=== PATIENT | female | born 1980 | race Caucasian/White ===

== ENCOUNTER → 2023-05-05 | Outpatient (RCR) | payer OTHER | END | disposition home or self-care (01) | LOC: WSPT | DX: S06.0X0D Concussion without loss of consciousness, subsequent encounter (principal) ==

== ENCOUNTER → 2023-05-21 | Outpatient (CLI) | payer OTHER ==
[~2023-05-21] MED LIST: ADIPEX-P37.5 MG PO; ADVIL200 MG PO; ALBUTEROL0.83 MG/ML IH; AMBIEN 10MG10 MG PO; AMERGE 2.5MG T2.5 MG PO; AMOXICILLIN 8751 TAB PO; ANUSOL-HC SUPPO25 MG RC; CARAFATE 1GM1 G PO; CEFTIN 250250 MG/TAB PO; CEFTIN500 MG PO; CELEBREX 200MG200 MG PO; CELEXA; CELEXA 20MG20 MG/TAB PO; CELEXA40 MG; CEPHALEXIN500 M1 PO; COLACE 100100 MG/CAP PO; COUMADIN; COUMADIN 22.5 MG/TAB PO; COUMADIN 5MG5 MG/TAB PO; COUMADIN4 MG; COUMADIN4 MG PO; CRESTOR20 MG PO; DAZIDOX20 MG PO; DOXYCYCLINE 10100 MG PO; DOXYCYCLINE100 M3 PO; ELIQUIS 5MG PO; ESCITALOPRAM PO; EXCEDRIN1 TAB PO; FLAGYL500 MG PO; FOLIC ACID 11 MG/TA1 PO; FOLIC ACID PO; GABAPENTIN100 M1 PO; HCTZ 25MG TAB25 MG PO; HYDROCORTISONE30 GM RC; IMITREX100 MG PO; LEVAQUIN 750MG750 M1 PO; LEVOXYL0.1 MG PO; LEVSIN0.125 M1 PO; LEXAPRO20 MG PO; LOVENOX 100100 MG/ML SQ; LOVENOX120 MG/0.8 SC; MAG-OX 400400 MG/TAB PO; MAGNESIUM ELEME30 MG PO; MEDROL 4MG DOSPA4 MG PO; METROGINE; MOBIC15 MG PO; MOTRIN 600600 MG/TAB PO; MULTI VITAMINS1 TAB PO; NATURAL MAGNES200 MG PO; NORCO 325 MG-51 TAB PO; NURTEC ODT75 MG PO; NYSTATIN OR100 MU/ML PO; OXY IR5 MG PO; OXYCODONE HCL5 MG PO; OXYCONTIN 10MG10 MG PO; PERCOCET 325 MG1 TA2 PO; PERCOCET 325 MG1 TA3 PO; PHARMASSURE ZIN50 MG PO; PHENERGAN 25 TA25 MG PO; PHENERGAN25 MG RC; PRAVACHOL 40MG40 MG PO; PRAZOSIN PO; PREDNISONE20 MG PO; PRIL40 PO; PRILOSEC 20MG20 MG PO; PROMETHAZINE12.5 M5 PO; PROTONIX20 MG PO; PYRIDIUM 100MG100 MG PO; RELPAX 40MG TAB40 MG PO; ROXICODONE 55 MG/TAB PO; RT ALBUTER2.5 MG/0.5 IH; SYNTHROID0.05 MG/TA PO; SYNTHROID0.088 MG/T PO; SYNTHROID0.1 MG/TAB PO; SYNTHROID0.125 MG/T PO; TENORMIN 2525 MG/TAB PO; THE MEDICINE S200 M2 PO; TIROSINT150 MC1 PO; TOPAMAX 100MG100 M1 PO; TOPAMAX50 MG PO; TYLENOL 500MG500 MG PO; ULTRAM 50MG TAB50 MG PO; VALIUM 5MG T5 MG/TAB PO; VICODIN 5/5001 UDTAB PO; VITAMIN B-2 100MG PO; VITAMIN B225 MG PO; XANAX1 MG PO; ZITHROMAX Z PA250 MG PO; ZOFRAN 4MG T4 MG/TAB PO; ZOFRAN ODT4 MG PO; ZOFRAN ODT8 MG PO; ZOFRAN8 MG PO
== END ==
LOC: COL.RAD 08:06
DX: M51.16 Intervertebral disc disorders with radiculopathy, lumbar region (principal); M51.17 Intervertebral disc disorders with radiculopathy, lumbosacral region; M48.061 Spinal stenosis, lumbar region without neurogenic claudication; E04.1 Nontoxic single thyroid nodule

== ENCOUNTER → 2023-05-28 | Outpatient (CLI) | payer OTHER | LOC: COL.RAD 11:59 | DX: E04.1 Nontoxic single thyroid nodule (principal) ==

== ENCOUNTER → 2023-06-17 | Outpatient (CLI) | payer OTHER ==
[~2023-06-17] MED LIST changes: +Iohexol 300 - 100 ML VIAL IV ONE; +NS 100 ML IV SCH
== END ==
LOC: COL.RAD 14:34
DX: E04.1 Nontoxic single thyroid nodule (principal); R07.9 Chest pain, unspecified; R06.02 Shortness of breath; Z86.711 Personal history of pulmonary embolism
CPT/HCPCS: Q9967

== ENCOUNTER 2023-10-22 21:05 | Emergency (ER) | payer OTHER ==
[~2023-10-22] VITALS: Ht 165.1 cm; Wt 113.6 kg
[~2023-10-22 21:05] MED LIST changes: +BACTRIM DS 8001 TAB PO; -Iohexol 300 - 100 ML VIAL IV ONE; -NS 100 ML IV SCH
[2023-10-22 21:15] VITALS: TEMP 97.5
[2023-10-22] MEDS ORDERED: Ondansetron 4 MG/2 ML VIAL IV ONE (22:30)
[2023-10-22] MEDS ORDERED: NS 1,000 ML IV ONE (22:30)
[2023-10-22 23:10] LABS: COLLECTION METHOD CLEAN CATCH
[2023-10-22 23:14] LABS: BASO % 0.4 % (0.0-2.0); EOS # 0.1 K/mm3 (0.0-0.7); EOS % 1.8 % (0.0-4.0); GRAN # 4.5 K/mm3 (1.4-6.5); GRAN % 56.7 % (42.2-75.2); HEMATOCRIT 38.4 % (37.0-47.0); LYMPH % 37.4 % (20.0-51.0); MEAN CELL VOLUME 90 fl (80.0-100.0); MEAN CORPUSCULAR HEMOGLOBIN 30 pg (27-31); MEAN CORPUSCULAR HGB CONC 34 g/dl (33.0-37.0); MEAN PLATELET VOLUME 10.5 fl (7.4-10.4); MONO # 0.3 K/mm3 (0.1-0.6); MONO % 3.4 % (1.7-9.3); PLATELET COUNT 193 K/mm3 (130-400); RED BLOOD COUNT 4.29 M/mm3 (4.10-5.30); REDCELL DISTRIBUTION WIDTH-CV 13.1 % (11.5-14.5)
[2023-10-22 23:20] LABS: PH 5.5 (5.0-8.5); URINE APPEARANCE CLEAR (CLEAR/HAZY); URINE BLOOD NEGATIVE (NEGATIVE); URINE COLOR ORANGE (YELLOW); URINE GLUCOSE NEGATIVE (NEGATIVE); URINE KETONE NEGATIVE (NEGATIVE); URINE NITRATE POSITIVE (NEGATIVE); URINE PROTEIN(semi-quant) TRACE (NEGATIVE)
[2023-10-22 23:36] LABS: ALBUMIN 3.5 g/dL (3.5-5.0); BILIRUBIN,TOTAL 0.5 mg/dL (0.2-1.2); CALCIUM 8.9 mg/dL (8.4-10.2); CREATININE, serum 0.75 mg/dL (0.57-1.11); POTASSIUM 3.8 mEq/L (3.5-4.5); TOTAL PROTEIN 6.4 g/dl (6.2-8.1)
[2023-10-22] MEDS ORDERED: KETAMINE IV ONE (23:45)
[2023-10-22] MEDS ORDERED: NS IV ONE (23:45)
[2023-10-23] MEDS ORDERED: Ondansetron 4 MG/2 ML VIAL IV ONE (00:30)
[2023-10-23] MEDS ORDERED: NS 1,000 ML IV ONE (01:00)
[2023-10-23] MEDS ORDERED: Magnesium Sulfate 4% 50 ML IV ONE (01:00)
[2023-10-23] MEDS ORDERED: NS IV ONE (01:00)
[2023-10-23] MEDS ORDERED: KETAMINE IV ONE (01:00)
[2023-10-23] MEDS ORDERED: Ketorolac 15 MG/ML VIAL IV ONE (03:45)
[2023-10-23] MEDS ORDERED: SUMAtriptan 6 MG/0.5 ML SYRINGE SQ ONE (04:00)
[2023-10-23] MEDS ORDERED: Cephalexin 500 MG CAP PO ONE (04:00)
[2023-10-23] MEDS ORDERED: CEPHALEXIN500 M1 PO (04:20)
[2023-10-23 04:28] VITALS: BP 100/63; PULSE 75
== END 2023-10-23 04:28 | disposition home or self-care (01) ==
LOC: COL.ER 21:05
PROVIDERS: Emergency Medicine
DX: R51.9 Headache, unspecified (principal); R11.2 Nausea with vomiting, unspecified; N39.0 Urinary tract infection, site not specified; Z87.891 Personal history of nicotine dependence
CPT/HCPCS: J1885; J2405; J3030; J3475; J7030

== ENCOUNTER 2023-11-12 17:13 | Emergency (ER) | payer OTHER ==
[~2023-11-12] VITALS: Ht 165.1 cm; Wt 111.8 kg
[~2023-11-12 17:13] MED LIST changes: +BENADRYL25 M2 PO; +D3-5050000 IU PO; +FERROUS SU325 MG/TAB PO; +MOTRIN 400400 MG/TAB PO; +NAPROSYN 2250 MG/TAB PO; +PREVALITE4 GM/5.5 G PO; +TRANSDERM-0.5 MG/21 TD
[2023-11-12 17:24] VITALS: TEMP 99.1
[2023-11-12] MEDS ORDERED: NS 1,000 ML IV ONE (17:30)
[2023-11-12] MEDS ORDERED: Promethazine 50 MG/ML 1 ML VIAL IM ONE (17:30)
[2023-11-12] MEDS ORDERED: Ketorolac 15 MG/ML VIAL IV ONE (17:30)
[2023-11-12 17:41] LABS: BASO % 0.6 % (0.0-2.0); EOS # 0.1 K/mm3 (0.0-0.7); EOS % 2.1 % (0.0-4.0); GRAN % 60.2 % (42.2-75.2); LYMPH # 2.2 K/mm3 (1.2-3.4); LYMPH % 32.2 % (20.0-51.0); MEAN CELL VOLUME 89 fl (80.0-100.0); MEAN CORPUSCULAR HEMOGLOBIN 30 pg (27-31); MEAN CORPUSCULAR HGB CONC 34 g/dl (33.0-37.0); MEAN PLATELET VOLUME 10.6 fl (7.4-10.4); MONO # 0.3 K/mm3 (0.1-0.6); MONO % 4.6 % (1.7-9.3); PLATELET COUNT 177 K/mm3 (130-400); RED BLOOD COUNT 4.48 M/mm3 (4.10-5.30); REDCELL DISTRIBUTION WIDTH-CV 13.1 % (11.5-14.5)
[2023-11-12 17:45] LABS: HEMOGLOBIN 13.4 g/dl (12.5-16.0)
[2023-11-12 17:55] LABS: COLLECTION METHOD CLEAN CATCH
[2023-11-12 17:59] LABS: URINE APPEARANCE CLEAR (CLEAR/HAZY); URINE COLOR Yellow (YELLOW)
[2023-11-12 18:00] LABS: PH 5.5 (5.0-8.5); URINE BLOOD 2+ (NEGATIVE); URINE GLUCOSE Negative (NEGATIVE); URINE KETONE TRACE (NEGATIVE); URINE NITRATE Negative (NEGATIVE); URINE PROTEIN(semi-quant) Negative (NEGATIVE); URINE UROBILINOGEN 0.2 E.U/dL (0.2-1.0)
[2023-11-12] MEDS ORDERED: Pregabalin 75 MG CAP PO ONE (18:00)
[2023-11-12] MEDS ORDERED: Methocarbamol 500 MG TAB PO ONE (18:00)
[2023-11-12 18:15] LABS: MUCOUS PRESENT (NOT PRESENT); SQUAMOUS EPITHELIAL 0-2 /hpf (0-10); URINE BACTERIA RARE /hpf (NONE SEEN); URINE RBC 0-2 /hpf (0-2); URINE WBC 0-2 /hpf (0-2)
[2023-11-12 18:23] LABS: ALBUMIN 3.6 g/dL (3.5-5.0); BILIRUBIN,TOTAL 0.4 mg/dL (0.2-1.2); CALCIUM 8.4 mg/dL (8.4-10.2); CREATININE, serum 0.78 mg/dL (0.57-1.11); POTASSIUM 4.5 mEq/L (3.5-4.5); TOTAL PROTEIN 6.4 g/dl (6.2-8.1)
[2023-11-12] MEDS ORDERED: Iohexol 300 - 100 ML VIAL IV ONE (18:48)
[2023-11-12] MEDS ORDERED: NS 50 ML IV ONE (18:51)
[2023-11-12 20:15] VITALS: BP 124/86; PULSE 82
== END 2023-11-12 20:15 | disposition home or self-care (01) ==
LOC: COL.ER 17:13
PROVIDERS: Emergency Medicine
DX: R10.30 Lower abdominal pain, unspecified (principal); Z79.01 Long term (current) use of anticoagulants
CPT/HCPCS: J1885; J2550; J7030; Q9967

== ENCOUNTER → 2023-12-17 | Day surgery (SDC) | payer OTHER ==
[~2023-12-17] VITALS: Ht 165.1 cm; Wt 111.8 kg
[~2023-12-17] MED LIST changes: +CALCIUM 600600 MG PO; +CELEXA40 MG PO; +ESTRACE 1MG1 MG/TAB PO; +LR 1,000 ML IV SCH; +LYRICA20 MG/ML PO; +Lidocaine PF 2% (20 MG/ML) 5 ML VIAL ONE; +NATURAL IRON65 MG; +NATURE'S BLEND100 M1 PO; +Ondansetron 4 MG/2 ML VIAL IV PRN; +PROAIR HFA0.09 MG/AC IH; +TIROSINT S PO; +TYLENOL 8 HR PO; +VITAMINC1000TA; +ZINC SULFATE 1566 MG
[2023-12-17 10:50] VITALS: BP 110/60; PULSE 88; TEMP 97.1
[2023-12-17 11:05] VITALS: BP 107/71; PULSE 72
--- NOTE | 2023-12-17 11:20 | NUR ---
1050 RETURNS TO ROOM 2 PER CART. AWAKE, ALERT. RESP UNLABORED. AMBULATES TO RECLINER WITH STANDBY ASSIST. DENIES NAUSEA, ABD/CHEST PAIN OR DYSPHAGIA. VITAL SIGNS OBTAINED. CALL LIGHT AT SIDE. IN ROOM 1104 T[address] PO JUICE WITHOUT NAUSEA. SWALLOWS WITHOUT DIFFICULTY. DISCHARGE INSTRUCTIONS REVIEWED. PATIENT VERBALIZES UNDERSTANDING. COPY PROVIDED IN DISCHARGE FOLDER [address] DR OLMEDO HERE TO VISIT WITH PATIENT 1112 DRESSES WITH ASSIST FROM
[2023-12-17 12:52] VITALS: BP 129/105; PULSE 106; TEMP 96
== END ==
LOC: SDCO 08:32
DX: K29.30 Chronic superficial gastritis without bleeding (principal); K21.9 Gastro-esophageal reflux disease without esophagitis; K31.84 Gastroparesis; K59.00 Constipation, unspecified; K92.1 Melena; R19.7 Diarrhea, unspecified; Z86.010 Personal history of colon polyps; Z86.718 Personal history of other venous thrombosis and embolism; Z86.711 Personal history of pulmonary embolism; Z86.73 Personal history of transient ischemic attack (TIA), and cerebral infarction without residual deficits; Z92.3 Personal history of irradiation; Z79.01 Long term (current) use of anticoagulants; Z85.820 Personal history of malignant melanoma of skin; Z90.49 Acquired absence of other specified parts of digestive tract; Z98.890 Other specified postprocedural states; Z83.719 Family history of colon polyps, unspecified; Z80.0 Family history of malignant neoplasm of digestive organs
CPT/HCPCS: J2704; J7120